=== PATIENT | male | born 1960 | race Caucasian/White ===

== ENCOUNTER 2022-08-28 22:47 | Emergency (ER) | payer OTHER, SELFPAY ==
--- NOTE | 2022-08-28 22:48 | ECG_ITS ---
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 Measurements Intervals [place] Rate: 86 P: 59 SD: 167 QRS: 70 QRSD: 94 T: 52 QT: 339 QTc: 406 Interpretive Statements SINUS RHYTHM NONSPECIFIC T-WAVE ABNORMALITY No previous ECG available for comparison Electronically Signed On 08-29-2022 20:53:40 CDT by Alcides Washington M.D. [email or web address] [id number] f
--- NOTE | 2022-08-28 22:48 | XRR_ITS ---
PROCEDURE INFORMATION: Exam: XR Chest Exam date and time: 08/28/2022 11:02 PM Age: 62 years old Clinical indication: Patient HX: Radiating chest pain to left up ext. ; Additional info: Cp TECHNIQUE: Imaging protocol: Radiologic exam of the chest. Views: 1 view. COMPARISON: No relevant prior studies available. FINDINGS: Lungs: 5 mm pulmonary nodule in the lateral portion of the right lower lobe. Nonemergent CT chest may be helpful for complete evaluation. Pleural spaces: Unremarkable. No pleural effusion. No pneumothorax. Heart/Mediastinum: Unremarkable. No cardiomegaly. Bones/joints: Unremarkable. XR/XR chest 1V portable [id number] IMPRESSION: 5 mm pulmonary nodule in the lateral portion of the right lower lobe. Nonemergent CT chest may be helpful for complete evaluation.
[2022-08-28 22:59] VITALS: BP 179/98; PULSE 91; RESP 20; TEMP 36.7; O2SAT 99; BMI 27.3
--- NOTE | 2022-08-28 23:00 | ED_ITS ---
HPI - Chest Pain General: Chief Complaint: Chest Pain Stated Complaint: cp going down L arm Time Seen by Provider: 08/28/22 22:48 Source: patient Mode of arrival: ambulatory Limitations: no limitations History of Present Illness: 62-year-old male states that he is having some chest pain for arrival. He states that he does have a history of heartburn and felt like he had some burning sensation in his chest and upper abdomen he states he had some pain that radiated to his arm. Denies any shortness of breath or nausea denies any worsening proving factors denies any fevers. Physical Exam Const: COMMON NORMALS: no acute distress, patient oriented x3 and healthy appearing HENMT: COMMON NORMALS: normocephalic and atraumatic HEAD & SCALP: normocephalic and atraumatic Eye: COMMON NORMALS: Equal, round and reactive pupils present and EOMs intact bilaterally PUPIL: Yes Equal, round and reactive pupils present Neck/C-Spine: COMMON NORMALS: full ROM and supple Chest: COMMONS NORMALS: normal inspection of the chest and normal palpation of entire chest wall Resp: COMMON NORMALS: normal respiratory effort, No retractions, No use of accessory muscles and clear to auscultation bilaterally AUSCULTATION: clear to auscultation bilaterally Cardio: COMMON NORMALS: regular rate, regular rhythm and No murmurs present (Cardio) RATE: regular rate RHYTHM: regular rhythm GI: COMMON NORMALS: Normal to inspection, nondistended, normoactive bowel sounds present, Soft to palpation, non-tender and no masses PALPATION: Yes Soft to palpation Extremity: COMMON NORMALS: normal to inspection and full ROM Neuro: COMMON NORMALS: patient oriented x3, moves all extremities and no focal motor deficits Psych: COMMON NORMALS: mental status grossly normal, Normal thought process present and cooperative THOUGHT PROCESS: Normal thought process present Skin: COMMON NORMALS: no rashes or lesions noted and no wounds GENERAL SKIN EXAM: no rashes or lesions noted Course Vital Signs: Vital signs: Vital Signs Temperature 98.0 F 08/28/22 22:59 Pulse Rate 74 08/29/22 00:39 Respiratory Rate 16 08/29/22 00:39 Blood Pressure 127/77 08/29/22 00:39 Pulse Oximetry 94 08/29/22 00:39 Oxygen Delivery Me thod 08/28/22 23:17 MDM - Chest Pain Medical Decision Making Patient presents for chest pains atypical in nature for likely reflux has been pain-free here troponins are negative I did inform of the x-ray result pulmonary nodule he is to follow-up with his PCP for follow-up and likely an outpatient CT scan is return to ER if worsening he understands agrees to plan. Lab Data : 08/28/22 22:57 10 22:57 Radiology Impressions Chest X-Ray 08/28/22 22:48 IMPRESSION: 5 mm pulmonary nodule in the lateral portion of the right lower lobe. Nonemergent CT chest may be helpful for complete evaluation. Laboratory Results WBC 7.5 10^3/uL (4.0-10.0) 08/28/22 22:57 RBC 4.73 10^6/uL (4.1-5.3) 08/28/22 22:57 Hgb 14.4 g/dL (11.7-16.6) 08/28/22 22:57 Hct 43.5 % (42.0-52.0) 08/28/22 22:57 MCV 92.0 fl (80-94) 08/28/22 22:57 MCH 30.4 pg (28.0-34.0) 08/28/22 22:57 MCHC 33.1 g/dL (30.0-36.0) 08/28/22 22:57 RDW 12.0 % (12.1-15.1) L 08/28/22 22:57 Plt Count 274 10^3/cmm (130-400) 08/28/22 22:57 MPV 9.0 fL (7.4-10.4) 08/28/22 22:57 Neut % (Auto) 60.2 % 08/28/22 22:57 Lymph % (Auto) 25.2 % 08/28/22 22:57 [place] % (Auto) 10.1 % 08/28/22 22:57 Eos % (Auto) 3.5 % 08/28/22:57 Baso % (Auto) 0.7 % 08/28/22 22:57 Neut # (Auto) 4.53 10^3/uL (1.8-7.7) 08/28/22 22:57 Lymph # (Auto) 1.9 10^3/uL (0.8-4.8) 08/28/22 22:57 [place] # (Auto) 0.8 10^3/uL (0.2-0.9) 08/28/22 22:57 Eos # (Auto) 0.3 10^3/uL (0.0-0.8) 08/28/22 22:57 Baso # (Auto) 0.1 10^3/uL (0.0-0.1) 08/28/22 22:57 Nucleated RBC % (auto) 0 % 08/28/22 22:57 Nucleated RBCs # 0.0 /100WBC 08/28/22 22:57 Sodium 138 mmol/L (136-145) 08/28/22 22:57 Potassium 4.2 mmol/L (3.5-5.1) 08/28/22 22:57 Chloride 102 mmol/L (98-107) 08/28/22 22:57 Carbon Dioxide 27 mmol/L (22-29) 08/28/22 22:57 Anion Gap 13.2 (5-19) 08/28/22 22:57 BUN 16 mg/dL (8-23) 08/28/22 22:57 Creatinine 0.8 mg/dL (0.7-1.2) 08/28/22 22:57 GFR Calculation 98.0 mL/min (90-130) 08/28/22 22:57 Glucose 110 mg/dL (65-115) 08/28/22 22:57 Calculated Osmolality 288 mOsm/kg (285-295) 08/28/22 22:57 Calcium 9.6 mg/dL (8.5-10.5) 08/28/22 22:57 Total Bilirubin 0.4 mg/dL (0.15-1.2) 08/28/22 22:57 AST 20 U/L (0-40) 08/28/22 22:57 ALT 22 U/L (0-41) 08/28/22 22:57 Alkaline Phosphatase 66 U/L (40-130) 08/28/22 22:57 Troponin T Baseline 6 ng/L (0-15) 08/28/22 22:57 Troponin T 120 Minute 6.79 ng/L (0-15) 08/29/22 00:30 Total Protein 7.0 g/dL (6.6-8.7) 08/28/22 22:57 Albumin 4.4 g/dL (3.5-5.2) 08/28/22 22:57 Globulin 2.6 g/dL (1.3-4.6) 08/28/22 22:57 Lipase 26 U/L (13-60) 08/28/22 22:57 EKG Data EKG 1: I personally reviewed and interpreted this EKG as follows: EKG interpretation date: 08/28/22 EKG interpretation time: 22:54 Interpretation: nsr hr [address] or t wave abnormalities qrs 94 qtc 382 EKG 2: I personally reviewed and interpreted this EKG as follows: EKG interpretation date: 08/29/22 EKG interpretation time: 00:28 Interpretation: nsr hr [address] or t wave abnormalities qrs 86 qtc 394 Discharge Plan Discharge Patient Disposition: Home Clinical Impression: Chest pain Condition: Stable Discharge Orders: Discharge ED (Routine); Ordered 08/29/22 Ordered By: Steph Anaya Referrals: Renny Clifton, DO [Primary Care Provider] - 1-3 days Discharge Diet: Advance as tolerated Discharge Activity: Resume usual activity Patient Instructions: Chest Pain (ED) Coding Level of Care Code ED Paper Machine Backtender for Chg Fwd Exam Comprehensive
[2022-08-28 23:04] LABS: Basophils # 0.1 10^3/uL (0.0-0.1); Basophils % 0.7 %; Eosinophils # 0.3 10^3/uL (0.0-0.8); Eosinophils % 3.5 %; Hematocrit 43.5 % (42.0-52.0); Hemoglobin 14.4 g/dL (11.7-16.6); Lymphocytes # 1.9 10^3/uL (0.8-4.8); Lymphocytes % 25.2 %; Mean Corpuscular HGB Conc 33.1 g/dL (30.0-36.0); Mean Corpuscular Hemoglobin 30.4 pg (28.0-34.0); Monocytes # 0.8 10^3/uL (0.2-0.9); Monocytes % 10.1 %; Neutrophils # 4.53 10^3/uL (1.8-7.7); Neutrophils % 60.2 %; Nucleated Red Blood Cells % 0 %; Platelet Count 274 10^3/cmm (130-400); Red Blood Count 4.73 10^6/uL (4.1-5.3); White Blood Count 7.5 10^3/uL (4.0-10.0)
[2022-08-28] MEDS: lidocaine 2% viscous 15 ML, aluminum-mag hydrox-simethicon 30 ML, sucralfate oral liq 1 GM PO (23:12)
[2022-08-28] MEDS: aspirin 81 mg Chew Tablet 324 MG PO (23:12)
[2022-08-28] MEDS: ondansetron 2 mg/ML SDV 2 mL 4 MG IVP (23:13)
[2022-08-28 23:17] VITALS: BP 145/87; PULSE 84; RESP 16; O2SAT 97
[2022-08-28 23:27] LABS: Alanine Aminotransferase 22 U/L (0-41); Albumin Level 4.4 g/dL (3.5-5.2); Alkaline Phosphatase 66 U/L (40-130); Anion Gap 13.2 (5-19); Aspartate Amino Transferase 20 U/L (0-40); Blood Urea Nitrogen 16 mg/dL (8-23); Calcium 9.6 mg/dL (8.5-10.5); Carbon Dioxide 27 mmol/L (22-29); Chloride 102 mmol/L (98-107); Globulin 2.6 g/dL (1.3-4.6); Glucose 110 mg/dL (65-115); Lipase 26 U/L (13-60); Osmolality Calculated 288 mOsm/kg (285-295); Potassium 4.2 mmol/L (3.5-5.1); Sodium 138 mmol/L (136-145); Total Bilirubin 0.4 mg/dL (0.15-1.2)
[2022-08-28 23:29] LABS: Troponin(5th) Baseline 6 ng/L (0-15)
[2022-08-28 23:37] VITALS: BP 132/80; PULSE 75; RESP 16; O2SAT 97
[2022-08-28 23:50] VITALS: BP 135/81; PULSE 74; RESP 16; O2SAT 96
--- NOTE | 2022-08-29 00:28 | ECG_ITS ---
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 Measurements Intervals [place] Rate: 68 P: 64 HI: 182 QRS: 60 QRSD: 86 T: 63 QT: 377 QTc: 402 Interpretive Statements SINUS RHYTHM Compared to ECG 08/28/2022 22:54:49 T-wave abnormality no longer present Electronically Signed On 08-29-2022 20:57:42 CDT by Alcides Washington M.D. [id number]
[2022-08-29 00:39] VITALS: BP 127/77; PULSE 74; RESP 16; O2SAT 94
[2022-08-29 00:56] LABS: Troponin 5 2HR 6.79 ng/L (0-15)
[2022-08-29 01:07] VITALS: BP 144/92; PULSE 67; RESP 16; O2SAT 97
[2022-08-29 01:20] LABS: Troponin 5 2HR Delta 0.79 ABS# (0-10)
--- NOTE | 2022-09-08 02:07 | ED_ITS ---
HPI - Chest Pain General: Chief Complaint: Chest Pain Stated Complaint: cp going down L arm Time Seen by Provider: 08/28/22 22:48 Source: patient Mode of arrival: ambulatory Limitations: no limitations History of Present Illness: . Associated symptoms: Deny abdominal pain, dyspnea, fever(s), nausea or vomiting Review of Systems Const: Denies: fever(s), chills, body aches or change in appetite Eyes: Denies: blurry vision or eye discomfort ENMT: Denies: throat pain or dental pain Card: Reports: chest pain Resp: Denies: dyspnea GI: Denies: abdominal pain, nausea, vomiting or diarrhea : Denies: dysuria Musc: Denies: neck pain or back pain Skin/Breast: Denies: rash Neuro: Denies: headache(s) Psych: Denies: depression [place]/Lymph: Denies: easy bruising All/Imm: Denies: urticaria PFSH ED PFSH: Social History (Updated 09/08/22 @ 02:07 by Steph Anaya MD) Substance/Drug Use: never Course Vital Signs: Vital signs: Vital Signs Temperature 98.0 F 08/28/22 22:59 Pulse Rate 67 08/29/22 01:07 Respiratory Rate 16 08/29/22 01:07 Blood Pressure 144/92 08/29/22 01:07 Pulse Oximetry 97 08/29/22 01:07 Oxygen Delivery Me thod 08/28/22 23:17 MDM - Chest Pain Medical Decision Making addendum to note includine ros for 08/28 vist Lab Data : 08/28/22 22:57 08/28/22 22:57 Radiology Impressions Chest X-Ray 08/28/22 22:48 IMPRESSION: 5 mm pulmonary nodule in the lateral portion of the right lower lobe. Nonemergent CT chest may be helpful for complete evaluation. Laboratory Results WBC 7.5 10^3/uL (4.0-10.0) 08/28/22 22:57 RBC 4.73 10^6/uL (4.1-5.3) 08/28/22 22:57 Hgb 14.4 g/dL (11.7-16.6) 08/28/22 22:57 Hct 43.5 % (42.0-52.0) 08/28/22 22:57 MCV 92.0 fl (80-94) 08/28/22 22:57 MCH 30.4 pg (28.0-34.0) 08/28/22 22:57 MCHC 33.1 g/dL (30.0-36.0) 08/28/22 22:57 RDW 12.0 % (12.1-15.1) L 08/28/22 22:57 Plt Count 274 10^3/cmm (130-400) 08/28/22 22:57 MPV 9.0 fL (7.4-10.4) 08/28/22 22:57 Neut % (Auto) 60.2 % 08/28/22 22:57 Lymph % (Auto) 25.2 % 08/28/22:57 [place] % (Auto) 10.1 % 08/28/22 22:57 Eos % (Auto) 3.5 % 08/28/22:57 Baso % (Auto) 0.7 % 08/28/22:57 Neut # (Auto) 4.53 10^3/uL (1.8-7.7) 08/28/22 22:57 Lymph # (Auto) 1.9 10^3/uL (0.8-4.8) 08/28/22 22:57 [place] # (Auto) 0.8 10^3/uL (0.2-0.9) 08/28/22 22:57 Eos # (Auto) 0.3 10^3/uL (0.0-0.8) 08/28/22 22:57 Baso # (Auto) 0.1 10^3/uL (0.0-0.1) 08/28/22 22:57 Nucleated RBC % (auto) 0 % 08/28/22:57 Nucleated RBCs # 0.0 /100WBC 08/28/22 22:57 Sodium 138 mmol/L (136-145) 08/28/22 22:57 Potassium 4.2 mmol/L (3.5-5.1) 08/28/22 22:57 Chloride 102 mmol/L (98-107) 08/28/22 22:57 Carbon Dioxide 27 mmol/L (22-29) 08/28/22 22:57 Anion Gap 13.2 (5-19) 08/28/22 22:57 BUN 16 mg/dL (8-23) 08/28/22 22:57 Creatinine 0.8 mg/dL (0.7-1.2) 08/28/22 22:57 GFR Calculation 98.0 mL/min (90-130) 08/28/22 22:57 Glucose 110 mg/dL (65-115) 08/28/22 22:57 Calculated Osmolality 288 mOsm/kg (285-295) 08/28/22 22:57 Calcium 9.6 mg/dL (8.5-10.5) 08/28/22 22:57 Total Bilirubin 0.4 mg/dL (0.15-1.2) 08/28/22 22:57 AST 20 U/L (0-40) 08/28/22 22:57 ALT 22 U/L (0-41) 08/28/22 22:57 Alkaline Phosphatase 66 U/L (40-130) 08/28/22 22:57 Troponin T Baseline 6 ng/L (0-15) 08/28/22 22:57 Troponin T 120 Minute 6.79 ng/L (0-15) 08/29/22 00:30 Delta Troponin T 0.79 ABS# (0-10) 08/29/22 00:30 Total Protein 7.0 g/dL (6.6-8.7) 08/28/22 22:57 Albumin 4.4 g/dL (3.5-5.2) 08/28/22 22:57 Globulin 2.6 g/dL (1.3-4.6) 08/28/22 22:57 Lipase 26 U/L (13-60) 08/28/22 22:57 Discharge Plan Discharge Patient Disposition: Home Clinical Impression: Chest pain Condition: Stable Discharge Orders: Discharge ED (Routine); Ordered 08/29/22 Ordered By: Steph Anaya Referrals: Renny Clifton DO [Primary Care Provider] - 1-3 days Discharge Diet: Advance as tolerated Discharge Activity: Resume usual activity Patient Instructions: Chest Pain (ED) Coding Level of Care Code ED Shotgun Shell 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
== END 2022-08-29 01:03 | disposition home or self-care (01) ==
PROVIDERS: Emergency Provider Emergency Medicine; PCP Family Medicine
DX: R07.9 Chest pain, unspecified (principal)
CPT/HCPCS: 71045; 80053; 83690; 84484; 85025; 93005; 96374; 99285; J2405

== ENCOUNTER → 2023-02-15 12:10 | Outpatient (BNVA) | payer OTHER, SELFPAY | PROVIDERS: PCP Family Medicine; Visit Provider Family Medicine | DX: Z00.00 Encounter for general adult medical examination without abnormal findings (principal); Z86.79 Personal history of other diseases of the circulatory system; Z12.11 Encounter for screening for malignant neoplasm of colon | CPT/HCPCS: 80053; 80061 ==

== ENCOUNTER → 2024-01-24 12:05 | Outpatient (BNVA) | payer OTHER, SELFPAY | PROVIDERS: PCP Family Medicine; Visit Provider Family Medicine | DX: Z00.00 Encounter for general adult medical examination without abnormal findings (principal); Z12.11 Encounter for screening for malignant neoplasm of colon; Z13.6 Encounter for screening for cardiovascular disorders | CPT/HCPCS: 80053; 80061 ==

== ENCOUNTER → 2025-01-28 08:32 | Outpatient (BNVA) | payer OTHER, SELFPAY | PROVIDERS: PCP Family Medicine; Visit Provider Family Medicine | DX: Z00.00 Encounter for general adult medical examination without abnormal findings (principal); M72.2 Plantar fascial fibromatosis; E03.9 Hypothyroidism, unspecified | CPT/HCPCS: 80053; 80061; 82607; 84443; 85025 ==